=== PATIENT | female | born 1990 | race Hispanic/Latino ===

== ENCOUNTER 2020-06-26 16:33 | Emergency (ER) | payer OTHER, SELFPAY ==
--- OUTSIDE RECORDS SUMMARY | 2020-06-26 16:35 | XMS REPORT | Continuity of Care Document ---
:[address] [facility] t Address [address] [place] [id number] Care Team Providers Name Role Phone Unavailable Unavailable Unavailable Problems This patient has no known problems. Allergies, Adverse Reactions, Alerts This patient has no known allergies or adverse reactions. Medications This patient has no known medications. Procedures This patient has no known procedures. Results This patient has no known results.
[2020-06-26 17:51] LABS: Urine Blood NEGATIVE (NEG); Urine Glucose NEGATIVE (NEG); Urine Protein NEGATIVE (NEG); Urine Specific Gravity 1.025 (1.005-1.030); Urine pH 6.5 (5.0-7.0)
[2020-06-26] MEDS ORDERED: ONDANSETRON 4 MG/2 ML VIAL ONE (17:55)
[2020-06-26] MEDS ORDERED: KETOROLAC 30 MG/ML INJ ONE (17:55)
[2020-06-26] MEDS ORDERED: NA CHLORIDE 0.9% 1,000 ML ONE (17:55)
[2020-06-26 18:23] LABS: Absolute Lymphocytes (CBC) 2.3 K/uL (0.7-4.9); BUN Blood Urea Nitrogen 10 mg/dL (7-18); Basophils % 0.6 % (0-1.3); Bicarbonate 26 mmol/L (21-32); Glucose Level 100 mg/dL (74-106); Hematocrit 31.1 % (36.0-45.0); Lymphocytes % 29.7 % (15.3-44.8); Potassium 3.7 mmol/L (3.5-5.1); Sodium Level 141 mmol/L (136-145)
--- NOTE | 2020-06-26 19:16 | RAD REPORT ---
EXAM DESCRIPTION: CT - Abdomen Pelvis W Contrast - 06/26/2020 6:58 pm CLINICAL HISTORY: Abdominal pain COMPARISON: 2015 TECHNIQUE: Computed axial tomography of the abdomen pelvis was obtained. 100 cc Isovue-300 was admin istered intravenously. Oral contrast was not requested which limits evaluation of bowel. All CT scans are performed using dose optimization technique as appropriate and may include automated exposure control or mA/KV adjustment according to patient size. FINDINGS: The liver, spleen, pancreas, adrenal and kidneys appear unremarkable. There is no evidence of diverticulitis. Appendectomy. The uterus is retroverted. Cholecystectomy. 12 millimeter right ovarian follicle. No significant free fluid. Bladder is mildly distended IMPRESSION: Mild bladder distention
--- NOTE | 2020-06-26 19:44 | ER ---
Nurse's Notes [facility] Name: Cassie Aguirre Age: 30 yrs Sex: Female : 1990 Arrival Date: 06/26/2020 Time: 16:48 Bed 16 Private MD: Diagnosis: Lower abdominal pain, unspecified Presentation: 06/26 17:00 Chief complaint: Patient states: was seen on Monday for pelvic pain and was told her em ovaries were swollen and was given diclofenac and Zithromax, also reports lower back pain, denies dysuria or fever, reports nausea. Coronavirus screen: Client denies travel out of the [place] in the last 14 days. Ebola Screen: Patient negative for fever greater than or equal to 101.5 degrees Fahrenheit, and additional compatible Ebola Virus Disease symptoms Patient denies exposure to infectious person. Patient denies travel to an Ebola-affected area in the 21 days before illness onset. No symptoms or risks identified at this time. Initial Sepsis Screen: Does the patient meet any 2 criteria? No. Patient's initial sepsis screen is negative. Does the patient have a suspected source of infection? No. Patient's initial sepsis screen is negative. Risk Assessment: Do you want to hurt yourself or someone else? Patient reports no desire to harm self or others. Onset of symptoms was June 22, 2020. 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 - Social history:: Smoking status: Patient denies any tobacco usage or history of. Screenin:06 Abuse screen: Denies threats or abuse. Denies injuries from another. Nutritional jl7 screening: No deficits noted. Tuberculosis screening: No symptoms or risk factors identified. Fall Risk IV access (20 points). Total Weir Fall Scale indicates No Risk (0-24 pts). Assessment: 18:06 General: Appears in no apparent distress. uncomfortable, Behavior is calm, cooperative, jl7 appropriate for age. Pain: Complains of pain in right lower quadrant and left lower quadrant Pain currently is 10 out of 10 on a pain scale. Quality of pain is described as crampy. Neuro: Level of Consciousness is awake, alert, obeys commands, Oriented to person, place, time, situation. Cardiovascular: Patient's skin is warm and dry. Respiratory: Airway is patent Respiratory effort is even, unlabored, Respiratory pattern is regular, symmetrical. GI: Abdomen is round non-distended, Stools are reported to be normal. Last BM was June 26, 2020. Reports nausea. Derm: Skin is pink, warm \T\ dry. 19:16 Reassessment: Patient appears in no apparent distress at this time. Patient and/or jb4 family updated on plan of care and expected duration. Pain level reassessed. Patient is alert, oriented x 3, equal unlabored respirations, skin warm/dry/pink. Vital Signs: 17:00 BP 122 / 75; Pulse 90; Resp 18; Temp 98.4; Pulse Ox 100% on R/A; Weight 63.5 kg; Height em 5 ft. 2 in. (157.48 cm); Pain 10/10; 19:15 BP 104 / 66; Pulse 64; Resp 16; Pulse Ox 100% on R/A; Pain 3/10; jb4 17:00 Body Mass Index 25.61 (63.50 kg, 157.48 cm) em ED Course: 16:48 Patient arrived in ED. mr 17:03 Triage completed. em 17:04 Arm band placed on. em 17:07 Edith Boss FNP-C [facility]. kb 17:07 Nimesh Bess MD is Attending Physician. kb 17:37 Daphnie Nelson RN is Primary Nurse. jl7 18:06 Patient has correct armband on for positive identification. Bed in low position. Call jl7 light in reach. Side rails up X 1. 18:06 Initial lab(s) drawn, by me, sent to lab. Urine collected: clean catch specimen. jl7 Inserted saline lock: 20 gauge in left antecubital area, using aseptic technique. Blood collected. 18:57 CT Abd/Pelvis - IV Contrast Only In Process Unspecified. EDMS 19:00 Primary Nurse role handed off by Daphnie Nelson RN jl7 19:10 Patient moved back from CT. mw3 19:12 Gunnison, Juancho, RN is Primary Nurse. jb4 19:50 No provider procedures requiring assistance completed. IV discontinued, intact, jb4 bleeding controlled, No redness/swelling at site. Pressure dressing applied. Administered Medications: 18:00 Drug: NS 0.9% 1000 ml Route: IV; Rate: 1000 ml; Site: left antecubital; jl7 18:02 Drug: Zofran (Ondansetron) 4 mg Route: IVP; Site: left antecubital; jl7 18:04 Drug: TORadol - Ketorolac 15 mg Route: IVP; Site: left antecubital; jl7 Outcome: 19:43 Discharge ordered by . ivett 19:50 Discharged to home ambulatory, with family. jb4 19:50 Condition: stable 19:50 Discharge instructions given to patient, Instructed on discharge instructions, follow up and referral plans. Demonstrated understanding of instructions, follow-up care. 19:51 Patient left the ED. jb4 Signatures: Dispatcher [employer] EDMS Edith Boss, TILE POWER SHEAR OPERATOR-C TILE POWER SHEAR OPERATOR-Deborah Medley Edgar, RN RN Juancho Gallegos, RN RN jb4 Daphnie Nelson RN RN jl7 Monika Barr mw3
--- NOTE | 2020-06-26 19:44 | EDPHYS ---
Physician Documentation [facility] Name: Cassie Aguirre Age: 30 yrs Sex: Female : 1990 Arrival Date: 06/26/2020 Time: 16:48 Bed 16 Private MD: ED Physician Nimesh Bess HPI: 06/26 20:57 This 30 yrs old Female presents to ER via Ambulatory with complaints of kb Abdominal Pain. 20:57 The patient presents with abdominal pain in the lower abdomen. Onset: The kb symptoms/episode began/occurred 1 week(s) ago. The symptoms do not radiate. Associated signs and symptoms: none. The symptoms are described as constant. Modifying factors: The symptoms are alleviated by nothing, the symptoms are aggravated by pressure. Severity of pain: At its worst the pain was moderate in the emergency department the pain is unchanged. The patient has not experienced similar symptoms in the past. The patient has been recently seen at an urgent care, this week, for similar complaints. 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 - Social history:: Smoking status: Patient denies any tobacco usage or history of. ROS: 19:49 Constitutional: Negative for fever, chills, and weight loss, Cardiovascular: Negative kb for chest pain, palpitations, and edema, Respiratory: Negative for shortness of breath, cough, wheezing, and pleuritic chest pain, Back: Negative for injury and pain, : Negative for injury, bleeding, discharge, and swelling, MS/Extremity: Negative for injury and deformity, Skin: Negative for injury, rash, and discoloration, Neuro: Negative for headache, weakness, numbness, tingling, and seizure. 19:49 Abdomen/GI: Positive for abdominal pain, Negative for nausea, vomiting, and diarrhea. Exam: 20:56 Constitutional: This is a well developed, well nourished patient who is awake, alert, kb and in no acute distress. Head/Face: Normocephalic, atraumatic. Chest/axilla: Normal chest wall appearance and motion. Nontender with no deformity. No lesions are appreciated. Cardiovascular: Regular rate and rhythm with a normal S1 and S2. No gallops, murmurs, or rubs. Normal PMI, no JVD. No pulse deficits. Respiratory: Lungs have equal breath sounds bilaterally, clear to auscultation and percussion. No rales, rhonchi or wheezes noted. No increased work of breathing, no retractions or nasal flaring. Skin: Warm, dry with normal turgor. Normal color with no rashes, no lesions, and no evidence of cellulitis. MS/ Extremity: Pulses equal, no cyanosis. Neurovascular intact. Full, normal range of motion. Neuro: Awake and alert, GCS 15, oriented to person, place, time, and situation. Cranial nerves II-XII grossly intact. Motor strength 5/5 in all extremities. Sensory grossly intact. Cerebellar exam normal. Normal gait. 20:56 Abdomen/GI: Inspection: abdomen appears normal, Bowel sounds: normal, in all quadrants, Palpation: soft, in all quadrants, mild abdominal tenderness, in the right lower quadrant and left lower quadrant. Vital Signs: 17:00 BP 122 / 75; Pulse 90; Resp 18; Temp 98.4; Pulse Ox 100% on R/A; Weight 63.5 kg; Height em 5 ft. 2 in. (157.48 cm); Pain 10/10; 19:15 BP 104 / 66; Pulse 64; Resp 16; Pulse Ox 100% on R/A; Pain 3/10; jb4 17:00 Body Mass Index 25.61 (63.50 kg, 157.48 cm) em MDM: 17:25 Patient medically screened. kb 19:42 Data reviewed: vital signs, nurses notes. Data interpreted: Pulse oximetry: is 100 %. kb Counseling: I had a detailed discussion with the patient and/or guardian regarding: the historical points, exam findings, and any diagnostic results supporting the discharge/admit diagnosis, lab results, radiology results, the need for outpatient follow up, a family practitioner, to return to the emergency department if symptoms worsen or persist or if there are any questions or concerns that arise at home. 06/26 17:29 Order name: Basic Metabolic Panel; Complete Time: 18:30 kb 06/26 17:29 Order name: CBC with Diff; Complete Time: 18:30 kb 06/26 17:32 Order name: Urine Dipstick--Ancillary (enter results); Complete Time: 17:53 eb 06/26 17:32 Order name: Urine --Ancillary (enter results); Complete Time: 17:53 eb 06/26 18:30 Order name: CT Abd/Pelvis - IV Contrast Only; Complete Time: 19:21 kb 06/26 19:22 Order name: Urine Microscopic Only kb 06/26 17:12 Order name: Urine Dipstick-Ancillary (obtain specimen); Complete Time: 18:05 kb 06/26 17:12 Order name: Urine Test (obtain specimen); Complete Time: 18:05 kb 06/26 17:29 Order name: IV Saline Lock; Complete Time: 18:05 kb 06/26 17:29 Order name: Labs collected and sent; Complete Time: 18:05 kb Administered Medications: 18:00 Drug: NS 0.9% 1000 ml Route: IV; Rate: 1000 ml; Site: left antecubital; jl7 18:02 Drug: Zofran (Ondansetron) 4 mg Route: IVP; Site: left antecubital; jl7 18:04 Drug: TORadol - Ketorolac 15 mg Route: IVP; Site: left antecubital; jl7 Disposition: 06/26/20 19:43 Discharged to Home. Impression: Lower abdominal pain, unspecified. - Condition is Stable. - Discharge Instructions: Pelvic Pain, Female, [id number], Abdominal Pain, Adult, [id number]. - Medication Reconciliation Form, Thank You Letter, Antibiotic Education, Prescription Opioid Use form. - Follow up: Emergency Department; When: As needed; Reason: Worsening of condition. Follow up: Private Physician; When: 2 - 3 days; Reason: Recheck today's complaints, Continuance of care, Re-evaluation by your physician. Addendum: 06/30/2020 03:33 Co-signature as Attending Physician, Nimesh Bess MD. m a2 Signatures: Dispatcher [employer] Edith Grover, AMISHA-C GAS ENGINEER-Carson Link, RN RN Juancho Gallegos RN RN jb4 Daphnie Nelson RN RN jl7 Nimesh Bess MD MD ne2 Corrections: (The following items were deleted from the chart) 06/26 19:51 19:43 06/26/2020 19:43 Discharged to Home. Impression: Lower abdominal pain, jb4 unspecified. Condition is Stable. Forms are Medication Reconciliation Form, Thank You Letter, Antibiotic Education, Prescription Opioid Use. Follow up: Emergency Department; When: As needed; Reason: Worsening of condition. Follow up: Private Physician; When: 2 - 3 days; Reason: Recheck today's complaints, Continuance of care, Re-evaluation by your physician. kb
[2020-06-26 20:12] LABS: Urine Bacteria NONE SEEN /HPF (<20); Urine RBC <5 /HPF (NONE SEEN)
[2020-06-26 23:28] VITALS: BP 122/75; TEMP 98.4; O2SAT 100
== END 2020-06-26 19:51 | disposition home or self-care (01) ==
LOC: ER 16:33
DX: R10.30 Lower abdominal pain, unspecified (principal)
CPT/HCPCS: 36415; 74177; 80048; 81003; 81015; 81025; 85025; 96374; 96375; 99284; J2405; J7030; Q9967

== ENCOUNTER 2021-12-04 00:15 | Emergency (ER) | payer SELFPAY ==
--- OUTSIDE RECORDS SUMMARY | 2021-12-04 00:17 | XMS REPORT | Continuity of Care Document ---
:1990 Author Organization [facility] t Address [address] [place] [id number] Care Team Providers Name Role Phone Unavailable Unavailable Unavailable Problems This patient has no known problems. Allergies, Adverse Reactions, Alerts This patient has no known allergies or adverse reactions. Medications This patient has no known medications. Procedures This patient has no known procedures. Results This patient has no known results.
[2021-12-04 01:23] LABS: Absolute Lymphocytes (CBC) 0.6 K/uL (0.7-4.9); Hematocrit 30.2 % (36.0-45.0); Lymphocytes % 5.6 % (15.3-44.8); MPV 8.3 fL (7.6-11.3); RBC Red Blood Cell Count 3.77 M/uL (3.86-4.86)
[2021-12-04 01:39] LABS: Albumin 3.9 g/dL (3.4-5.0); Bilirubin Total 0.4 mg/dL (0.2-1.0); Potassium 3.6 mmol/L (3.5-5.1); Protein, Total 7.6 g/dL (6.4-8.2)
[2021-12-04] MEDS ORDERED: MORPHINE 2 MG/ML SYR ONE (01:39)
[2021-12-04] MEDS ORDERED: PANTOPRAZOLE 40 MG INJ ONE (02:52)
[2021-12-04 03:14] LABS: Urine Blood 3+ (Negative); Urine Glucose Negative (Negative); Urine Protein Negative (Negative); Urine Specific Gravity 1.025 (1.005-1.030); Urine pH 6.5 (5.0-7.0)
[2021-12-04 03:30] LABS: Urine Specific Gravity/Preg 1.025 (1.005-1.030)
--- NOTE | 2021-12-04 04:57 | EDPHYS ---
Physician Documentation [facility] Name: Cassie Aguirre Age: 31 yrs Sex: Female : 1990 Arrival Date: 12/04/2021 Time: 00:16 Bed 13 Private MD: ED Physician Boone Cross HPI: 12/04 01:40 This 31 yrs old Female presents to ER via Ambulatory with complaints of mh7 Medication Reaction. 01:40 The patient presents with abdominal pain in the epigastric area. Onset: The mh7 symptoms/episode began/occurred 3 day(s) ago. The symptoms do not radiate. Associated signs and symptoms: Pertinent positives: nausea, vomiting, and diarrhea, Pertinent negatives: anorexia, blood in stools, chest pain, constipation, diarrhea, dysuria, fever, headache, hematuria, palpitations, shortness of breath, vaginal discharge, vomiting blood. The symptoms are described as intermittent, vague, waxing/waning. Modifying factors: The symptoms are alleviated by nothing, the symptoms are aggravated by medication(s). Severity of pain: At its worst the pain was moderate last night, in the emergency department the pain is unchanged. States she is currently taking Ibuprofen and Clindamycin for tooth infection.. 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 - Social history:: Smoking status: Patient reports the use of cigarette tobacco products. ROS: 01:40 Constitutional: Negative for fever, chills, and weight loss, Eyes: Negative for injury, mh7 pain, redness, and discharge, ENT: Negative for injury, pain, and discharge, Neck: Negative for injury, pain, and swelling, Cardiovascular: Negative for chest pain, palpitations, and edema, Respiratory: Negative for shortness of breath, cough, wheezing, and pleuritic chest pain, Back: Negative for injury and pain, : Negative for injury, bleeding, discharge, and swelling, MS/Extremity: Negative for injury and deformity, Skin: Negative for injury, rash, and discoloration, Neuro: Negative for headache, weakness, numbness, tingling, and seizure, Psych: Negative for depression, anxiety, suicide ideation, homicidal ideation, and hallucinations, Allergy/Immunology: Negative for hives, rash, and allergies, Endocrine: Negative for neck swelling, polydipsia, polyuria, polyphagia, and marked weight changes, Hematologic/Lymphatic: Negative for swollen nodes, abnormal bleeding, and unusual bruising. Exam: 01:40 Head/Face: Normocephalic, atraumatic. Eyes: Pupils equal round and reactive to light, mh7 extra-ocular motions intact. Lids and lashes normal. Conjunctiva and sclera are non-icteric and not injected. Cornea within normal limits. Periorbital areas with no swelling, redness, or edema. ENT: Nares patent. No nasal discharge, no septal abnormalities noted. Tympanic membranes are normal and external auditory canals are clear. Oropharynx with no redness, swelling, or masses, exudates, or evidence of obstruction, uvula midline. Mucous membranes moist. Neck: Trachea midline, no thyromegaly or masses palpated, and no cervical lymphadenopathy. Supple, full range of motion without nuchal rigidity, or vertebral point tenderness. No Meningismus. Chest/axilla: Normal chest wall appearance and motion. Nontender with no deformity. No lesions are appreciated. Cardiovascular: Regular rate and rhythm with a normal S1 and S2. No gallops, murmurs, or rubs. Normal PMI, no JVD. No pulse deficits. Respiratory: Lungs have equal breath sounds bilaterally, clear to auscultation and percussion. No rales, rhonchi or wheezes noted. No increased work of breathing, no retractions or nasal flaring. 01:40 Back: No spinal tenderness. No costovertebral tenderness. Full range of motion. Skin: Warm, dry with normal turgor. Normal color with no rashes, no lesions, and no evidence of cellulitis. MS/ Extremity: Pulses equal, no cyanosis. Neurovascular intact. Full, normal range of motion. Neuro: Awake and alert, GCS 15, oriented to person, place, time, and situation. Cranial nerves II-XII grossly intact. Motor strength 5/5 in all extremities. Sensory grossly intact. Cerebellar exam normal. Normal gait. Psych: Awake, alert, with orientation to person, place and time. Behavior, mood, and affect are within normal limits. 01:40 Constitutional: The patient appears in no acute distress, alert, awake, uncomfortable. 01:40 Abdomen/GI: Inspection: abdomen appears normal, Bowel sounds: normal, in all quadrants, Palpation: moderate abdominal tenderness, in the epigastric area, mass, is not appreciated, rebound tenderness, is not appreciated, voluntary guarding, is not appreciated, involuntary guarding, is not appreciated, no appreciated organomegaly, Rectal exam: the exam is deferred, because of patient request, Indicators: McBurney's point is not tender, Estrada's sign is negative, Rovsing's sign is negative, Obturator sign is negative, Psoas sign is negative, Liver: no appreciated palpable abnormalities, Hernia: not appreciated. Vital Signs: 00:33 BP 108 / 76; Pulse 88; Resp 20; Temp 98.8; Pulse Ox 100% on R/A; Weight 65.77 kg (R); lp1 Height 5 ft. 2 in. (157.48 cm); Pain 10/10; 03:05 BP 134 / 76; Pulse 78; Resp 17; Pulse Ox 100% on R/A; ke1 00:33 Body Mass Index 26.52 (65.77 kg, 157.48 cm) lp1 MDM: 04:53 Differential diagnosis: bowel obstruction, diverticulitis, gastritis, gastroesophageal mh7 reflux disease, non-specific abd pain, pancreatitis, Peptic Ulcer Disease, Perf. Gastric Ulcer, urinary tract infection. Data reviewed: vital signs, nurses notes, lab test result(s), CBC, electrolytes, urinalysis, radiologic studies, CT scan. Data interpreted: Pulse oximetry: on room air is 100 %. Interpretation: normal. Counseling: I had a detailed discussion with the patient and/or guardian regarding: the historical points, exam findings, and any diagnostic results supporting the discharge/admit diagnosis, lab results, radiology results, the need for outpatient follow up, to return to the emergency department if symptoms worsen or persist or if there are any questions or concerns that arise at home. Response to treatment: the patient's symptoms have resolved after treatment, the patient's blood pressure is in an acceptable range, mental status has returned to baseline, the patient no longer shows bradycardia, the patient is not short of breath, the patient is not tachycardic, the patient's pain is gone, the patient's temperature has normalized. 04:56 Patient medically screened. [facility] 12/04 01:01 Order name: CBC with Diff; Complete Time: 01:29 lp1 12/04 01:01 Order name: CMP; Complete Time: 02:06 lp1 12/04 01:01 Order name: Lipase; Complete Time: 02:06 lp1 12/04 02:06 Order name: CT Abd/Pelvis - IV Contrast Only [facility] 12/04 03:14 Order name: Urine Dipstick-Ancillary; Complete Time: 03:19 EDMS 12/04 03:28 Order name: Urine --Ancillary (enter results); Complete Time: 03:35 wm 12/04 01:01 Order name: IV Saline Lock; Complete Time: 01:26 lp1 12/04 01:01 Order name: Labs collected and sent; Complete Time: 01:27 lp1 12/04 01:29 Order name: Urine Dipstick-Ancillary (obtain specimen); Complete Time: 03:13 [facility] 12/04 01:29 Order name: Urine Test (obtain specimen); Complete Time: 03:13 [facility] Administered Medications: 01:26 Drug: Pepcid (famotidine) 20 mg Route: IVP; Site: left antecubital; ke1 02:00 Follow up: Response: Marked relief of symptoms ke1 01:26 Drug: Zofran (Ondansetron) 4 mg Route: IVP; Site: left antecubital; ke1 02:00 Follow up: Response: Marked relief of symptoms ke1 01:26 Drug: NS 0.9% 1000 ml Route: IV; Rate: 1000 ml; Site: left antecubital; ke1 02:15 Follow up: IV Status: Completed infusion ke1 01:26 Drug: GI Cocktail without - (Maalox Suspension 30 ml, Lidocaine Liquid 2 % 15 ke1 ml) Route: PO; 01:40 Follow up: Response: Pain is decreased ke1 01:40 Drug: morphine 2 mg Route: IVP; Site: left antecubital; ke1 02:00 Follow up: Response: Pain is decreased ke1 03:00 Drug: ProTONIX (pantoprazole) 40 mg Route: IVP; Site: left antecubital; ke1 03:30 Follow up: Response: Marked relief of symptoms ke1 Disposition Summary: 12/04/21 04:56 Discharge Ordered Location: Home [facility] Problem: new [facility] Symptoms: have improved [facility] Condition: Stable [facility] Diagnosis - Upper abdominal pain, unspecified 7 - Nausea with vomiting, unspecified mh7 - Diarrhea, unspecified mh7 Followup: [facility] - With: Private Physician - When: 1 - 2 days - Reason: Worsening of condition, Recheck today's complaints, Continuance of care, Re-evaluation by your physician Discharge Instructions: - Discharge Summary Sheet [facility] - Nausea and Vomiting, Adult mh7 - Abdominal Pain, Adult, [id number] [facility] - Diarrhea, Adult, [id number]-[id number] [facility] - Ovarian Cyst, [id number] [facility] Forms: - Medication Reconciliation Form [facility] - Thank You Letter [facility] - Antibiotic Education [facility] - Prescription Opioid Use [facility] Prescriptions: - ondansetron 4 mg Oral tablet,disintegrating - place 1 tablet by TRANSLINGUAL route every 8 hours As needed; 10 tablet; [facility] Refills: 0, Product Selection Permitted - Augmentin 500-125 mg Oral Tablet - take 1 tablet by ORAL route every 8 hours for 10 days; 30 tablet; Refills: 0, [facility] Product Selection Permitted - Protonix 40 mg Oral Tablet - take 1 tablet by ORAL route once daily; 30 tablet; Refills: 0, Product [facility] Selection Permitted Signatures: Dispatcher [employer] Radha Ball RN RN lp1 Boone Cross MD MD 7 Deacon Snider RN RN ke1
--- NOTE | 2021-12-04 04:57 | ER ---
Nurse's Notes Former[facility] Name: Cassie Aguirre Age: 31 yrs Sex: Female : 1990 Arrival Date: 12/04/2021 Time: 00:16 Bed 13 Private MD: Diagnosis: Upper abdominal pain, unspecified;Nausea with vomiting, unspecified;Diarrhea, unspecified Presentation: 12/04 00:30 Chief complaint: Spouse and/or significant other states: reports patient having lp1 upper abdominal pain x 3 days, currently taking Clindamycin and Ibuprofen QID for infected tooth; Patient reports having diarrhea and vomiting due to medications. Coronavirus screen: At this time, the client does not indicate any symptoms associated with coronavirus-19. Ebola Screen: No symptoms or risks identified at this time. Risk Assessment: Do you want to hurt yourself or someone else? Patient reports no desire to harm self or others. Onset of symptoms was December 04, 2021. 00:30 Method Of Arrival: Ambulatory lp1 00:30 Acuity: HILDA 2 lp1 00:35 Initial Sepsis Screen: Does the patient meet any 2 criteria? No. Patient's initial lp1 sepsis screen is negative. Does the patient have a suspected source of infection? No. Patient's initial sepsis screen is negative. Triage Assessment: 00:44 General: Appears uncomfortable, Behavior is appropriate for age. Pain: Complains of ke1 pain in abdomen Pain does not radiate. Pain currently is 10 out of 10 on a pain scale. at worst was 10 out of 10 on a pain scale. level that patient reports is acceptable is 4 out of 10 on a pain scale. Quality of pain is described as crampy. Neuro: Level of Consciousness is awake, alert, Oriented to person, place, time, situation. Respiratory: Breath sounds are coarse. MISSILEMAN: 00:33 LMP 12/04/2021 lp1 Historical: - Allergies: 00:32 No Known Allergies; lp1 - Home Meds: 00:32 None [Active]; lp1 - PMHx: 00:32 None; lp1 - PSHx: 00:32 Appendectomy; Cholecystectomy; lp1 - Immunization history:: Adult Immunizations up to date. - Social history:: Smoking status: Patient reports the use of cigarette tobacco products. Screenin:42 Abuse screen: Denies threats or abuse. Nutritional screening: No deficits noted. ke1 Tuberculosis screening: No symptoms or risk factors identified. Fall Risk No fall in past 12 months (0 pts). No secondary diagnosis (0 pts). IV access (20 points). Ambulatory Aid- None/Bed Rest/Nurse Assist (0 pts). Gait- Normal/Bed Rest/Wheelchair (0 pts) Mental Status- Oriented to own ability (0 pts). Total Weir Fall Scale indicates. Assessment: 02:15 Reassessment: No changes from previously documented assessment. ke1 03:05 Reassessment: No changes from previously documented assessment. ke1 Vital Signs: 00:33 BP 108 / 76; Pulse 88; Resp 20; Temp 98.8; Pulse Ox 100% on R/A; Weight 65.77 kg (R); lp1 Height 5 ft. 2 in. (157.48 cm); Pain 10/10; 03:05 BP 134 / 76; Pulse 78; Resp 17; Pulse Ox 100% on R/A; ke1 00:33 Body Mass Index 26.52 (65.77 kg, 157.48 cm) lp1 ED Course: 00:16 Patient arrived in ED. ja2 00:30 Arm band placed on right wrist. lp1 00:32 Triage completed. lp1 00:56 Boone Cross MD is Attending Physician. 7 01:11 Deacon Snider, HIEN is Primary Nurse. ke1 01:12 Inserted saline lock: 22 gauge in left forearm, using aseptic technique. ke1 01:42 Bed in low position. Call light in reach. ke1 03:37 CT Abd/Pelvis - IV Contrast Only In Process Unspecified. EDMS 05:10 No provider procedures requiring assistance completed. IV discontinued. ke1 Administered Medications: 01:26 Drug: Pepcid (famotidine) 20 mg Route: IVP; Site: left antecubital; ke1 02:00 Follow up: Response: Marked relief of symptoms ke1 :26 Drug: Zofran (Ondansetron) 4 mg Route: IVP; Site: left antecubital; ke1 02:00 Follow up: Response: Marked relief of symptoms ke1 :26 Drug: NS 0.9% 1000 ml Route: IV; Rate: 1000 ml; Site: left antecubital; ke1 02:15 Follow up: IV Status: Completed infusion ke1 01:26 Drug: GI Cocktail without - (Maalox Suspension 30 ml, Lidocaine Liquid 2 % 15 ke1 ml) Route: PO; 01:40 Follow up: Response: Pain is decreased ke1 01:40 Drug: morphine 2 mg Route: IVP; Site: left antecubital; ke1 02:00 Follow up: Response: Pain is decreased ke1 03:00 Drug: ProTONIX (pantoprazole) 40 mg Route: IVP; Site: left antecubital; ke1 03:30 Follow up: Response: Marked relief of symptoms ke1 Outcome: 04:56 Discharge ordered by . bailee 05:10 Discharged to home ambulatory. ke1 05:10 Condition: good 05:10 Discharge instructions given to patient. 05:12 Patient left the ED. ke1 Signatures: Dispatcher [employer] EDRadha Washburn RN RN lp1 Boone Cross MD MD 7 Marielle Baldwin Kouassi, RN RN ke1 Corrections: (The following items were deleted from the chart) 00:35 00:30 Chief complaint: Spouse and/or significant other states: reports patient lp1 having upper abdominal pain x 3 days, currently taking Clindamycin and Ibuprofen QID for infected tooth; Patient reports having diarrhea due to medications lp1 00:35 00:33 Pulse Ox 100% RA; Temp 98.8F; 65.77 kg Reported; Height 5 ft. 2 in.; BMI: 26.5; lp1 Pain 05/09; lp1 00:37 00:30 Acuity: HILDA 3 lp1 lp1
[2021-12-04 05:31] VITALS: TEMP 98.8; O2SAT 100
[2021-12-04 05:33] VITALS: BP 134/76
--- NOTE | 2021-12-06 12:21 | RAD REPORT ---
EXAM DESCRIPTION: CT - Abdomen Pelvis W Contrast - 12/04/2021 6:44 am CLINICAL HISTORY: The patient is 31 years old and is Female; Abdominal pain, acute TECHNIQUE: Axial computed tomography images of the abdomen and pelvis with intravenous contrast. S agittal and coronal reformatted images were created and reviewed. This CT exam was performed using one or more of the following dose reduction techniques: automated exposure control, adjustment of t he mA and/or kV according to patient size, and/or use of iterative reconstruction technique. and/or use of iterative reconstruction technique. COMPARISON: CT abdomen pelvis June 26, 2020. FINDINGS: Lung bases: Unremarkable. No mass. No consolidation. ABDOMEN: Liver: Suspect prominent capsular fold anteroinferior liver margin. Gallbladder and bile ducts: Cholecystectomy without choledocholithiasis. No ductal dilation. Pancreas: No findings to suggest acute pancreatitis. No mass visualized. No ductal dilation. Spleen: Unremarkable. No splenomegaly. Adrenals: Unremarkable. No mass. Kidneys and ureters: Unremarkable. No solid mass. No hydronephrosis. Stomach and bowel: No bowel dilatation or obstruction. No bowel wall thickening. PELVIS: Appendix: Appendectomy. Bladder: Bladder is not well distended. No stones. Reproductive: 2.5 cm right ovarian simple cyst. Retroverted uterus. Left ovary is unremarkable. ABDOMEN and PELVIS: Intraperitoneal space: Unremarkable. No free air. No significant fluid collection. Bones/joints: Mild lumbar scoliosis with concavity to the right. No acute fracture. No dislocation. Soft tissues: Unremarkable. Vasculature: Unremarkable. No abdominal aortic aneurysm. Lymph nodes: No pathologically enlarged lymph nodes. IMPRESSION: 1. No acute obstructive or inflammatory process identified. 2. 2.5 cm right ovarian simple cyst. No follow-up imaging is recommended. Reference: JACR 2019;17(2):248-254 3. Additional non-emergent findings as above. Electronically signed by: Breonna Hung MD 12/04/2021 4:20 AM CDT Due to temporary technical issues with the PACS/Fluency reporting system, reports are being signed by the in house radiologist without review as a courtesy to ensure prompt reporting. The interpreting r adiologist is fully responsible for the content of the report.
== END 2021-12-04 05:12 | disposition home or self-care (01) ==
LOC: ER 00:15
DX: R10.13 Epigastric pain (principal); R11.2 Nausea with vomiting, unspecified; R19.7 Diarrhea, unspecified; Z72.0 Tobacco use
CPT/HCPCS: 36415; 74177; 80053; 81003; 81025; 83690; 85025; 96361; 96374; 96375; 99283; C9113; J2270; Q9967